=== PATIENT | male | born 1965 | race Asian ===

== ENCOUNTER 2018-08-28 06:21 | Day surgery (SDC) | payer OTHER ==
[~2018-08-28] VITALS: Ht 167.6 cm; Wt 71.6 kg
[2018-08-28 07:09] VITALS: Ht 167.6 cm; Wt 71.6 kg
[2018-08-28 07:25] VITALS: BP 146/82; PULSE 82; RESP 18
[2018-08-28] MEDS ORDERED: LOSARTAN PO (07:34)
[2018-08-28] MEDS ORDERED: MIDAZOLAM 1 MG/ML 2 ML INJ ONE ×2 (08:47)
[2018-08-28] MEDS ORDERED: FENTAnyl 50 MCG/ML VIAL ONE (08:47)
[2018-08-28 09:10] VITALS: BP 113/75; RESP 15
== END 2018-08-28 08:50 | disposition home or self-care (01) ==
LOC: GIL 06:21
PROVIDERS: ATTEND Internal Medicine Gastroenterology
DX: Z12.11 Encounter for screening for malignant neoplasm of colon (principal); K64.8 Other hemorrhoids; D12.5 Benign neoplasm of sigmoid colon; I10 Essential (primary) hypertension
CPT/HCPCS: 45380; 88305; J2250; J3010; Z7610